=== PATIENT | female | born 1955 | race Two or more races ===

== ENCOUNTER → 2020-06-01 06:00 | Outpatient (CLI) | payer OTHER | END | disposition home or self-care (01) | LOC: LAB 06:00 → ADM 12:00 → AMB-ENDOS 06-08 07:38 → EDSTATUS 06-08 12:00 → AMB-ENDOS 06-08 12:00 → ADM 06-08 12:00 | PROVIDERS: ATTEND Surgery | DX: C20 Malignant neoplasm of rectum (principal); Z03.818 Encounter for observation for suspected exposure to other biological agents ruled out; R19.4 Change in bowel habit; R19.5 Other fecal abnormalities; R59.0 Localized enlarged lymph nodes ==

== ENCOUNTER 2020-07-13 07:51 | Day surgery (SDC) | payer OTHER | END 2020-07-13 13:35 | disposition home or self-care (01) | LOC: AMB-ENDOS 07:51 | PROVIDERS: ATTEND Surgery | DX: K62.89 Other specified diseases of anus and rectum (principal); K64.8 Other hemorrhoids; Z20.828 Contact with and (suspected) exposure to other viral communicable diseases ==

== ENCOUNTER 2021-07-19 06:40 | Day surgery (SDC) | payer OTHER | END 2021-07-19 10:30 | disposition home or self-care (01) | LOC: AMB-ENDOS 06:40 | PROVIDERS: ATTEND Surgery | DX: K62.89 Other specified diseases of anus and rectum (principal) ==